=== PATIENT | female | born 1940 | race Hispanic/Latino ===

== ENCOUNTER 2016-12-01 08:34 | Outpatient (CLI) | payer MEDICARE, OTHER ==
--- NOTE | 2016-12-01 09:16 | Mammography Report ---
IMPLANT MAMMOGRAM: Bilateral breast imaging was done with standard and displacement technique. Parenchyma is symmetrically seen ventral to each implant. The implant contours are smooth. The implant capsules are calcified. No suspicious findings or secondary signs of malignancy are seen. No interval change identified compared to prior study in November 2015. CAD was utilized. CONCLUSION: Negative implant mammogram. RECOMMENDATION: Routine follow-up. BI-RADS CATEGORY: 1 = Negative ACR BI-RADS MAMMOGRAPHIC CODES: 0 = Needs additional imaging evaluation; 1 = Negative; 2 = Benign; 3 = Probably benign; 4 = Suspicious; 5 = Malignant; 6 = Known biopsy-proven malignancy COMMENT: 1. Dense breast tissue, i.e., adenosis, fibrocystic changes, etc., may obscure an underlying neoplasm. 2. Approximately 10% of cancers are not detected with mammography. 3. A negative mammography report should not delay biopsy if a clinically suspicious mass is present. COMMENT: Patient follow-up letters are generated in [employer] ([employer]).
== END 2016-12-01 08:35 | disposition home or self-care (01) ==
LOC: SPVWC 08:34
PROVIDERS: ATTEND Internal Medicine
DX: Z12.31 Encounter for screening mammogram for malignant neoplasm of breast (principal); Z98.82 Breast implant status
CPT/HCPCS: 77067; G0202

== ENCOUNTER 2017-12-03 10:01 | Outpatient (CLI) | payer MEDICARE, OTHER ==
--- NOTE | 2017-12-03 12:41 | Mammography Report ---
BILATERAL DIGITAL AUGMENTED SCREENING MAMMOGRAM with CAD: 12/03/17 10:01:00 CLINICAL: Routine screening. COMPARISON:None FINDINGS: Screening views with and without implant displacement demonstrate mostly fatty breasts. A left inner asymmetry identified only on the nondisplaced CC view requires additional imaging. No architectural distortion or suspicious calcifications. The right breast is negative. Intact subglandular implants. IMPRESSION: Left asymmetry requiring additional imaging. BI-RADS CATEGORY: 0 -- Needs Additional Imaging RECOMMENDATION: Recall for a left nondisplaced spot compression CC view and left breast ultrasound if needed. ACR BI-RADS MAMMOGRAPHIC CODES: 0 = Needs additional imaging evaluation; 1 = Negative; 2 = Benign; 3 = Probably benign; 4 = Suspicious; 5 = Malignant; 6 = Known biopsy-proven malignancy COMMENT: 1. Dense breast tissue, i.e., adenosis, fibrocystic changes, etc., may obscure an underlying neoplasm. 2. Approximately 10% of cancers are not detected with mammography. 3. A negative mammography report should not delay biopsy if a clinically suspicious mass is present. COMMENT: Patient follow-up letters are generated via our [employer] application.
== END 2017-12-03 10:02 | disposition home or self-care (01) ==
LOC: SPVWC 10:01
PROVIDERS: ATTEND Internal Medicine
DX: Z12.31 Encounter for screening mammogram for malignant neoplasm of breast (principal)
CPT/HCPCS: 77067

== ENCOUNTER 2017-12-15 09:44 | Outpatient (CLI) | payer MEDICARE, OTHER ==
--- NOTE | 2017-12-15 11:51 | Ultrasound Report ---
LEFT DIGITAL DIAGNOSTIC MAMMOGRAM and LEFT BREAST ULTRASOUND: 12/15/17 09:44:00 CLINICAL: Recalled for asymmetry. COMPARISON:12/03/17 screening FINDINGS: A repeat CC view and spot compression CC views were performed and demonstrate a persistent inner asymmetry. Ultrasound of the inner left breast was performed and demonstrated normal structures with no mass, cyst or shadowing to correlate with the mammographic asymmetry. IMPRESSION: A persistent left mammographic asymmetry with a negative ultrasound. Recommend breast MRI for further evaluation. BI-RADS CATEGORY: 0--Needs Additional Imaging RECOMMENDATION: Bilateral breast MRI. I discussed the mammographic finding with the patient and discussed the option of mammographic followup but she prefers to have an MRI. ACR BI-RADS MAMMOGRAPHIC CODES: 0 = Needs additional imaging evaluation; 1 = Negative; 2 = Benign; 3 = Probably benign; 4 = Suspicious; 5 = Malignant; 6 = Known biopsy-proven malignancy COMMENT: 1. Dense breast tissue, i.e., adenosis, fibrocystic changes, etc., may obscure an underlying neoplasm. 2. Approximately 10% of cancers are not detected with mammography. 3. A negative mammography report should not delay biopsy if a clinically suspicious mass is present. COMMENT: Patient follow-up letters are generated via our [employer] application.
== END 2017-12-15 09:45 | disposition home or self-care (01) ==
LOC: SPVWC 09:44
PROVIDERS: ATTEND Internal Medicine
DX: R92.8 Other abnormal and inconclusive findings on diagnostic imaging of breast (principal)

== ENCOUNTER 2017-12-29 09:07 | Outpatient (CLI) | payer MEDICARE, OTHER ==
--- NOTE | 2017-12-30 15:37 | Magnetic Resonance Report ---
BILATERAL BREAST MRI WITHOUT AND WITH CONTRAST: 12/29/17 09:07:00 CLINICAL: Abnormal left mammogram with an inner asymmetry. COMPARISON:12/03/17 and 12/15/17 mammograms and left breast ultrasound.. TECHNIQUE: Axial 1.0-mm T1 without, axial high resolution 2.0-mm T2 and axial 1.0-mm dynamic Vibrant high-resolution postcontrast T1 fat saturation sequences on a 1.5 Feli magnet. The examination was performed with an 8 channel dedicated [place] breast coil. Post processing with CAD and subtraction was performed on an [employer] workstation. 15.0 cc of Multihance was injected without incident for the contrast portion of the exam. Consent was obtained prior to the administration of the contrast. FINDINGS: Right: Minimal background parenchymal enhancement. No mass or suspicious enhancement. A subglandular implant with heavy capsular calcification and a mildly irregular contour of the implant. Serpiginous hypointense linear structures within the implant are consistent with a linguini sign which is indicative of implant rupture. No suspicious lymph nodes. Left: Minimal background parenchymal enhancement. No mass or suspicious enhancement. A subglandular implant with heavy capsular calcification and a mildly irregular contour of the implant. Serpiginous hypointense linear structures within the implant are consistent with a linguini sign which is indicative of implant rupture. Mild focal thickening of the medial implant capsule and at the inferior posterior and lateral aspect of the capsule. No suspicious lymph nodes. IMPRESSION: 1. Negative study with no suspicion of malignancy. 2. Bilateral intracapsular implant rupture. BI-RADS 2 -- Benign
== END 2017-12-29 09:08 | disposition home or self-care (01) ==
LOC: SPVIMAG 09:07
PROVIDERS: ATTEND Internal Medicine
DX: R92.8 Other abnormal and inconclusive findings on diagnostic imaging of breast (principal)
CPT/HCPCS: A9577; C8908; 77059

== ENCOUNTER 2018-09-16 09:56 | Outpatient (CLI) | payer MEDICARE ==
--- NOTE | 2018-09-16 14:46 | Mammography Report ---
BONE DEXA:09/16/18 09:56:00 CLINICAL: Postmenopausal. No comparison. TECHNIQUE: Two site bone DEXA performed on an Hologic scanner. FINDINGS: The average BMD of the lumbar spine L1-L4 is 0.809g/cm squared with a T-score of -2.2 and a Z-score of +0.5. The average BMD of the left hip is 0.712g/cm squared with a T-score of -1.9 and a Z-score of +0.2. IMPRESSION: WHO classification: Osteopenia with increased fracture risk based on both spine and left hip measurements. RECOMMENDATION: Clinical correlation and routine screening. DEFINITIONS: BMD = Bone Mineral Density T-score = BMD related to mean peak bone mass of young adult (mean expressed in Standard Deviation) Z-score = Age matched BMD expressed in SD World Health Organization (WHO) Diagnostic Criteria Normal T-score > -1 SD Osteopenia T-score between -1 and -2.4 SD Osteoporosis T-score -2.5 SD or below NOTE: BMD is not the only risk factor for fracture. One should also consider factors such as the patient's age, risk of falling, previous osteoporotic fracture, family history of osteoporotic fractures, current smoker, and low body weight. Z-scores are not calculated if >80 years of age.
== END 2018-09-16 09:57 | disposition home or self-care (01) ==
LOC: SPVWC 09:56
PROVIDERS: ATTEND Internal Medicine
DX: M85.88 Other specified disorders of bone density and structure, other site (principal); Z78.0 Asymptomatic menopausal state
CPT/HCPCS: 77080

== ENCOUNTER 2020-09-27 07:58 | Outpatient (CLI) | payer MEDICARE ==
--- NOTE | 2020-09-27 10:48 | Mammography Report ---
DIGITAL SCREENING MAMMOGRAM WITH CAD, 09/27/2020 INDICATION: Routine screening mammography. TECHNIQUE: Digital bilateral 2D mammography was obtained in the craniocaudal and mediolateral obliq ue projections. This examination was interpreted with the benefit of Computer-Aided Detection analysi s. COMPARISON: 12/03/2017. FINDINGS: Breast Density: There are scattered areas of fibroglandular density. There is no evidence of dominant mass, suspicious calcifications or architectural distortion in eithe r breast. Previous bilateral breast augmentation. IMPRESSION: Follow up recommendation: Routine yearly BI-RADS Category 1: Negative. A "normal" or negative report should not discourage follow up or biopsy of a clinically significant f inding. A written summary of these findings will be mailed to the patient. The patient will be entered into a mammography reporting system which will generate a reminder letter for the patient's next appointmen t at the appropriate interval. The [employer] recommends yearly mammograms starting at age 40 and continuing as l janet as a woman is in good health. Breast MRI is recommended for women with an approximate 20-25% or greater lifetime risk of breast cancer, including women with a strong family history of breast or ova elvira cancer or who have been treated for Hodgkin's disease. Signer Name: Reji Resendez MD Signed: 09/27/2020 10:43 AM Workstation Name: [email or web address]
== END 2020-09-27 07:59 | disposition home or self-care (01) ==
LOC: SPVWC 07:58
PROVIDERS: ATTEND Internal Medicine
DX: Z12.31 Encounter for screening mammogram for malignant neoplasm of breast (principal)
CPT/HCPCS: 77067

== ENCOUNTER 2021-10-01 09:27 | Outpatient (CLI) | payer MEDICARE ==
--- NOTE | 2021-10-01 15:43 | Mammography Report ---
DEXA BONE DENSITY SCAN INDICATION / CLINICAL INFORMATION: OSTEOPENIA. 81 years Female COMPARISON: 09/16/2018 LUMBAR SPINE, L1-L4: - Bone mineral density (BMD) = 0.840 g/cm2. - T-score = -1.9 - Change (%) since most recent prior (if available): +3.8 LEFT HIP, NECK : - Bone mineral density (BMD) = 0.574 g/cm2. - T-score = -2.5 - Change (%) since most recent prior (if available): No change. IMPRESSION: 1. WHO Classification: Osteoporosis. Fracture Risk: High. 2. 10-Year Fracture Risk (FRAX) = Major Osteoporotic Not reported.% / Hip: Not reported.% FRAX generally not reported for patients with normal or osteoporotic BMD, in asj-[id number]-[id number] christopher ents younger than age 50, or in patients undergoing pharmacotherapy BMD Reporting Guidelines (ISCD, 2015) BMD Reporting in Postmenopausal Women and in Men Age 50 and Older - T-scores are preferred. - The WHO densitometric classification is applicable. BMD Reporting in Females Prior to Menopause and in Males Younger Than Age 50 - Z-scores, not T-scores, are preferred. This is particularly important in children. - A Z-score of -2.0 or lower is defined as below the expected range for age, and a Z-score above -2.0 is within the expected range for age. - Osteoporosis cannot be diagnosed in men under age 50 on the basis of BMD alone. - The WHO diagnostic criteria may be applied to women in the menopausal transition. http://www.iscd.org/official-positions/2710-wowu-qguszwwb-positions-adult/ Signer Name: Pavan Shi MD Signed: 10/01/2021 3:38 PM Workstation Name: [email or web address]
--- NOTE | 2021-10-03 10:40 | Mammography Report ---
DIGITAL SCREENING MAMMOGRAM WITH CAD, 10/01/2021 CLINICAL INFORMATION / INDICATION: Routine screening mammography. TECHNIQUE: Digital bilateral 2D mammography was obtained in the craniocaudal and mediolateral obliqu e projections. This examination was interpreted with the benefit of Computer-Aided Detection analysis . COMPARISON: Prior mammogram 09/27/2020 and 12/03/2017 FINDINGS: Breast Density: There are scattered areas of fibroglandular density. No dominant mass, suspicious calcifications, or architectural distortion in the left breast. There are bilateral prepectoral silicone implants. There is an 8 mm asymmetric density seen in the la teral right breast, middle to posterior depth, seen on CC view only. IMPRESSION: 1. An asymmetric density in the right breast requires further evaluation with spot compression views and targeted ultrasound if needed. Follow up recommendation: Special View: Spot Compression BI-RADS Category 0: INCOMPLETE. Needs additional imaging evaluation and/or prior mammograms for mónica sim. A "normal" or negative report should not discourage follow up or biopsy of a clinically significant f inding. A written summary of these findings will be mailed to the patient. The patient will be entered into a mammography reporting system which will generate a reminder letter for the patient's next appointmen t at the appropriate interval. The [employer] recommends yearly mammograms starting at age 40 and continuing as l janet as a woman is in good health. Breast MRI is recommended for women with an approximate 20-25% or greater lifetime risk of breast cancer, including women with a strong family history of breast or ova elvira cancer or who have been treated for Hodgkin's disease. Signer Name: Jing Whittington MD Signed: 10/03/2021 10:36 AM Workstation Name: [email or web address]
== END 2021-10-01 09:28 | disposition home or self-care (01) ==
LOC: SPVWC 09:27
PROVIDERS: ATTEND Internal Medicine
DX: Z12.31 Encounter for screening mammogram for malignant neoplasm of breast (principal); M81.0 Age-related osteoporosis without current pathological fracture
CPT/HCPCS: 77067; 77080

== ENCOUNTER 2021-10-11 08:10 | Outpatient (CLI) | payer MEDICARE ==
--- NOTE | 2021-10-11 10:13 | Ultrasound Report ---
RIGHT DIGITAL DIAGNOSTIC MAMMOGRAM CONVENTIONAL, 10/11/2021 RIGHT LIMITED BREAST ULTRASOUND CLINICAL INFORMATION / INDICATION: Abnormal screening mammogram TECHNIQUE: Digital right mammographic imaging was performed. Spot compression views were obtained. [facility]. COMPARISON: Screening mammography 10/01/2021, 09/27/2020, 12/03/2017 FINDINGS: Breast Density: There are scattered areas of fibroglandular density. MAMMOGRAPHIC FINDINGS: Implant is noted. Subtle small density with mild architectural distortion pers ists with additional views on cc projections and rolled CC projections but is not clearly defined on ML view and was not seen on MLO view recently. This is approximate 6 cm lateral to the nipple and mid depth. ULTRASOUND FINDINGS: Targeted ultrasound evaluation was performed of the area of interest. Examinatio n of the lateral breast was performed. Implant is noted. In the 7:00 position, 6 cm from the nipple, an irregular hypoechoic area is seen measuring approximat oni 8 mm but with heavy shadowing. No vascularity is seen. In the 9:00 position, 10 cm from the nipple, a small mixed echogenicity area is seen measuring 8 mm w hich is mostly hyperechoic and fat-like in consistency. No definite shadowing is seen. Mild periphera l vascularity is noted which could be incidental. In the 10:00 position, 6 cm from the nipple, an area of irregular hypoechogenicity with moderate shad owing is seen. No vascularity is noted. The area of shadowing and hypoechogenicity measures approxima tely 11 mm. IMPRESSION: There is persistence of a small new focus of density and architectural distortion in the lateral right breast mammographically. On sonographic examination two areas of irregular hypoechogeni city and shadowing are seen roughly 6 cm from the nipple as above at 7:00 and 10:00, either of which could correlate with the mammographic abnormality and both of which are suspicious. It is possible in this with implants, that water both of these areas could relate to scarring however. The small mostl y hyperechoic area at 9:00 is considered probably benign and could be followed sonographically. Follow up recommendation: Ultrasound-guided right breast biopsy at the 7:00 and 10:00 positions. Sono graphic follow-up in 6 months of the 9:00 lesion. BI-RADS Category 4: SUSPICIOUS FOR MALIGNANCY. A "normal" or negative report should not discourage follow up or biopsy of a clinically significant f inding. A written summary of these findings will be mailed to the patient. The patient will be entered into a mammography reporting system which will generate a reminder letter for the patient's next appointmen t at the appropriate interval. According to the [employer], yearly mammograms are recommended starting at age 40 and continuing as long as a woman is in good health. Breast MRI is recommended for women with an papo roximately 20-25% or greater lifetime risk of breast cancer, including women with a strong family his tory of breast or ovarian cancer and women who have been treated for Hodgkin's disease. Signer Name: Alan Houston MD Signed: 10/11/2021 10:08 AM Workstation Name: [email or web address]
== END 2021-10-11 08:11 | disposition home or self-care (01) ==
LOC: MAMMO 08:10
PROVIDERS: ATTEND Internal Medicine
DX: R92.2 Inconclusive mammogram (principal)